=== PATIENT | male | born 1990 | race Caucasian/White ===

== ENCOUNTER 2017-12-24 08:09 | Emergency (ER) | payer MEDICAID ==
[~2017-12-24] VITALS: Ht 177.8 cm; Wt 77.0 kg
[2017-12-24 08:12] VITALS: BP 134/80
[2017-12-24] MEDS ORDERED: IBUPROFEN 200 MG TABLET ONE (08:48)
[2017-12-24] MEDS ORDERED: IBUPROFEN 200 MG TABLET PO ONE (09:00)
== END 2017-12-24 10:21 | disposition home or self-care (01) ==
LOC: ED 10:15
DX: S62.025A Nondisplaced fracture of middle third of navicular [scaphoid] bone of left wrist, initial encounter for closed fracture (principal); W16.92XA Jumping or diving into unspecified water causing other injury, initial encounter; Y93.89 Activity, other specified; Y99.8 Other external cause status; Y92.009 Unspecified place in unspecified non-institutional (private) residence as the place of occurrence of the external cause
CPT/HCPCS: 29125; 99284